=== PATIENT | female | born 1935 | race Caucasian/White ===

== ENCOUNTER 2023-02-07 08:42 | Outpatient (CLI) | payer OTHER | END 2023-02-07 08:46 | disposition home or self-care (01) | LOC: SONOGRAMA 08:42 | PROVIDERS: ATTEND Internal Medicine Gastroenterology | DX: R16.1 Splenomegaly, not elsewhere classified (principal); R16.2 Hepatomegaly with splenomegaly, not elsewhere classified; K30 Functional dyspepsia ==